=== PATIENT | female | born 1950 | race Caucasian/White ===

== ENCOUNTER 2017-10-17 13:10 | Emergency (ER) | payer MEDICARE ==
[2017-10-17] MEDS ORDERED: Acetaminophen 500 MG TAB ONE (13:58)
[2017-10-17] MEDS ORDERED: Albuterol Sulfate 2.5 mg/0.5 ml Neb ONE (15:01)
--- NOTE | 2017-10-17 15:34 | RAD ---
TWO VIEW CHEST: INDICATION: Cough and fever. FINDINGS: There is prominence of the cardiac silhouette. No lobar consolidation, effusion, or discrete pneumot horax. Osseous structures are intact. IMPRESSION: No focal consolidation. POS: [facility]
== END 2017-10-17 15:41 | disposition home or self-care (01) ==
LOC: SCSER 13:10
DX: J11.1 Influenza due to unidentified influenza virus with other respiratory manifestations (principal); E78.5 Hyperlipidemia, unspecified; I10 Essential (primary) hypertension
CPT/HCPCS: 71046; 94640; J7611

== ENCOUNTER 2018-01-07 14:51 | Outpatient (CLI) | payer MEDICARE ==
--- NOTE | 2018-01-07 17:12 | MMO ---
SCREENING MAMMOGRAPHY 01/07/18 COMPARISON: 10/03/15 HISTORY: Screening. FINDINGS: The patient's mammogram is interpreted with the assistance of computer aided detection. There is no dominant mass, architectural distortion. No concerning microcalcification. Scattered fibr oglandular densities are present. Benign appearing microcalcifications are noted bilaterally. No dominant mass or architectural distort ion. No concerning microcalcifications are noted. IMPRESSION: BI-RADS 2: Benign Finding(s) Routine annual screening mammography (for women over age 40). POS: [facility]
[2018-01-07 18:35] LABS: Hep C IgG Ab Non-Reactive (NonReactive); Hep C Index 0.12 S/CO (0-0.79)
== END 2018-01-07 14:52 | disposition home or self-care (01) ==
LOC: SCSMAMMO 14:51
PROVIDERS: ATTEND Family Medicine
DX: Z12.31 Encounter for screening mammogram for malignant neoplasm of breast (principal); Z00.00 Encounter for general adult medical examination without abnormal findings; Z11.59 Encounter for screening for other viral diseases
CPT/HCPCS: 36415; 77067; 86803

== ENCOUNTER 2018-08-24 01:57 | Emergency (ER) | payer MEDICARE ==
[2018-08-24] MEDS ORDERED: Amoxicillin/Potassium Clav 875 MG TAB ONE (02:38)
== END 2018-08-24 03:00 | disposition home or self-care (01) ==
LOC: SCSER 01:57
DX: J01.90 Acute sinusitis, unspecified (principal); I10 Essential (primary) hypertension; E78.5 Hyperlipidemia, unspecified; Z79.899 Other long term (current) drug therapy
CPT/HCPCS: 99283

== ENCOUNTER 2018-10-04 18:00 | Emergency (ER) | payer MEDICARE ==
--- NOTE | 2018-10-04 18:56 | RAD ---
THREE VIEWS RIGHT SMALL FINGER: Comparison: None. History: Injured small finger playing volleyball. FINDINGS: Three views of the right small finger shows a Sunita fracture of the distal phalanx at the DIP joint . A Sunita deformity at the finger is seen. IMPRESSION: Sunita fracture of the distal phalanx of the small finger. POS: [facility]
== END 2018-10-04 18:41 | disposition home or self-care (01) ==
LOC: SCSER 18:00
DX: S62.636A Displaced fracture of distal phalanx of right little finger, initial encounter for closed fracture (principal); I10 Essential (primary) hypertension; E78.5 Hyperlipidemia, unspecified; Z79.899 Other long term (current) drug therapy; W21.06XA Struck by volleyball, initial encounter

== ENCOUNTER 2018-10-20 13:49 | Day surgery (SDC) | payer MEDICARE ==
[2018-10-19 13:09] VITALS: BMI 23.9
[2018-10-20] MEDS ORDERED: Ketorolac Tromethamine 30 MG/ML VIAL ONE (15:32)
[2018-10-20] MEDS ORDERED: ePHEDrine/0.9% NaCl/PF SYRINGE 50 mg/10 ml ONE (15:32)
[2018-10-20] MEDS ORDERED: Lidocaine 1% PF 5 ML VIAL ONE (15:32)
[2018-10-20] MEDS ORDERED: PROPOFOL 200 MG/20 ML VIAL ONE (15:32)
[2018-10-20] MEDS ORDERED: Ondansetron PF 4 MG/2 ML Vial ONE (15:32)
[2018-10-20] MEDS ORDERED: Dexamethasone 20 MG/5 ML VIAL ONE (15:32)
[2018-10-20] MEDS ORDERED: PHENYLEPHRINE-NS 100 MCG/ML 10 ML SYRINGE ONE (15:32)
[2018-10-20 15:43] LABS: #Basophils 0.1 thou/uL (0.0-0.2); #Eosinphils 0.2 thou/uL (0.0-0.7); #Lymphocytes 1.1 thou/uL (1.20-3.40); #Monocytes 0.3 thou/uL (0.11-0.59); #Neutrophils 3.6 thou/uL (1.40-6.50); %Basophils 0.9 % (0.0-1.0); %Eosinophils 3.3 % (0.0-10.0); %Lymphocytes 20.6 % (21.0-51.0); %Monocytes 6.2 % (0.0-10.0); %Neutrophils 68.8 % (42.0-75.0); Hemoglobin 13.6 g/dL (12.0-16.0); Mean Corpuscular HGB CONC 33.9 g/dL (32.0-36.0); Mean Corpuscular Hemoglobin 29.2 pg (27.0-31.0); Mean Corpuscular Volume 86.1 fL (78.0-98.0); Mean Platelet Volume 7.5 fL (7.4-10.4); Platelet Count 211 thou/uL (130-400); RBC Distribution Width 11.8 % (11.5-14.5); Red Blood Cell (RBC) Count 4.65 mill/uL (4.20-5.40); White Blood Cell (WBC) Count 5.3 thou/uL (4.8-10.8)
[2018-10-20 15:56] LABS: Anion Gap 15 mmol/L (10-20); BUN (Urea Nitrogen) 12 mg/dL (9.8-20.1); Calc. Creatinine Clearance 72 mL/min (70-130); Calcium 9.9 mg/dL (7.8-10.44); Carbon Dioxide 19 mmol/L (23-31); Chloride 108 mmol/L (98-107); Estimated GFR-MDRD 80; Glucose 80 mg/dL (80-115); Potassium 3.6 mmol/L (3.5-5.1); Sodium 138 mmol/L (136-145)
--- NOTE | 2018-10-20 16:05 | RAD ---
TWO VIEWS CHEST: Comparison: 10-17-17 History: Pre-operative radiograph prior to finger surgery for mallet fracture of the finger. FINDINGS: Two views of the chest show normal sized cardiomediastinal silhouette. There is no evidence of consol idation, mass, or pleural effusion. The bones are unremarkable. IMPRESSION: No evidence of acute cardiopulmonary disease. POS: [facility]
[2018-10-20 16:07] LABS: Bilirubin Negative (Negative); Blood, Urine Negative (Negative); Clarity TURBID (Clear); Glucose, Urine (Dipstick) Negative (Negative); Leukocyte Negative (Negative); Nitrite Negative (Negative); Protein, Urine (Dipstick) Negative (Neg-Trace); Specific Gravity, Urine 1.015 (1.002-1.036); Urobilinogen 0.2 mg/dL (0.2-1.0); pH, Urine 7.5 (5.0-9.0)
[2018-10-20 16:09] LABS: Bacteria/HPF None Seen HPF (None Seen); Hyaline Casts/LPF 0-3 HYALINE CAST LPF (0-3 Hyaline); Pathc Cast-AUWi Flag 0.14 (0-2.49); RBC/HPF 0-3 HPF (0-3); Squamous Epithelial None Seen HPF (0-3); WBC/HPF 0-3 HPF (0-3)
[2018-10-20] MEDS ORDERED: Bacitracin Zinc Ointment 30 gm TUBE ONE (18:31)
[2018-10-20] MEDS ORDERED: Clindamycin/D5W 900 mg/50 ml Premix Bag ONE (18:46)
[2018-10-20] MEDS ORDERED: Midazolam HCl 2 mg/2 ml Vial ONE (19:01)
--- NOTE | 2018-10-20 23:46 | RAD ---
TWO VIEWS RIGHT FINGER 10/20/18 PROVIDED CLINICAL HISTORY: Fracture FINDINGS: Spot fluoroscopic images demonstrate percutaneous pinning of the DIP of one of the digits. IMPRESSION: As above. POS: [facility]
--- NOTE | 2018-10-21 07:29 | EKG ---
Test Reason : PREOP Blood Pressure : / mmHG Vent. Rate : 067 BPM Atrial Rate : 067 BPM P-R Int : 180 ms QRS Dur : 100 ms QT Int : 424 ms P-R-T Axes : 066 063 080 degrees QTc Int : 448 ms Normal sinus rhythm Possible Inferior infarct (cited on or before 28-NOV-2013) Abnormal ECG When compared with ECG of 06-APR-2014 08:52, No significant change was found Confirmed by DR. Cale DURBIN ([id number]) on 10/21/2018 7:29:42 AM Referred By: TYRESE Confirmed By:DR. Cale DURBIN
--- NOTE | 2018-10-21 10:37 | OP ---
DATE OF PROCEDURE: 10/20/2018 PREOPERATIVE DIAGNOSIS: Right small finger extensor tendon laceration with mallet fracture displaced 100%, not touching. POSTOPERATIVE DIAGNOSES: Right small finger extensor tendon laceration with mallet fracture displaced 100% not touching, with a finding of 6 mm wide by 2 mm thick avulsion fracture with 6 mm extensor tendon laceration, terminal tendon. PROCEDURE PERFORMED: 1. C-arm supervision to open reduction of distal phalanx mallet fracture. 2. Pinning of distal interphalangeal joint. 3. Extensor tendon repair. TOURNIQUET TIME: Forty-four minutes. BLOOD LOSS: Less than 10 mL. INDICATIONS FOR PROCEDURE: Patient with mallet fracture 100% displaced, small, could not reduce splint in office. Thus, intervention was indicated. DESCRIPTION OF PROCEDURE: After successful general LMA technique by MAC anesthesia and was prepped and draped. Time-out was done appropriately. We gave a 10 mL of 0.5% Marcaine metacarpophalangeal joint block level right small finger with Marcaine 0.5%, no epi. Waited for 3 minutes, and then exsanguinated the limb. Inflated tourniquet to 250 mmHg pressure. C-arm brought to the field again and made several attempts to achieve closed reduction, but would not even oppose despite position of the joint. For this reason, we made a H-shaped incision, carried out through skin and subcutaneous tissue. Brought the exposing the terminal tendon and the joint, we then used C-arm to determine where the fragment was located and then made an incision in the tendon V-shaped 1.5 mm distal to this so that the fragment would have a chance to have tendon on it. In the middle of this, we saw a five 6 mm radial-sided laceration and we entered this radially and distally. We made a V-shape to preserve tendon on the bone. We then curetted the tiny fragment, made slight depressions, noticed that the fragment was too small over the K-wire, so we pinned the joint with a 0.045 K-wire and mild hyperextension, only 5 degrees. We used a [place] suture heavy 3-0 Prolene to tendons and along the edges of the bone to help reduce it. Then, with the pin joint and the pin 1.5 cm into the bone of the middle phalanx, we then drilled two Diogo needles on either side of the fracture obliquely into the trough created, we have allowed to pull the tendon and bone into the defect. Once this was done, we then confirmed reduction, tied the heavy 3-0 Prolene over a button with a Adaptic between the skin and the button and we had excellent apposition and no motion grossly of the button or the tendon/bone repair. Radiographs showed the bone was nearly anatomical with complete apposition into the distal phalanx distal to the fracture. We deflated the tourniquet, cut the wire below the skin, closed the 6 mm defect with a 5-0 [id number] Prolene, obtained hemostasis, closed the skin with interrupted 4-0 nylon simple pattern and placed a bulky dressing with a splint MP joint, 80 degrees, PIP extended out to the level of the nail bed. The patient left the operating with pink digit. No evidence of anesthetic operative complication. Job ID: [id number]
== END 2018-10-20 22:10 | disposition home or self-care (01) ==
LOC: SDC 13:49
PROVIDERS: ATTEND Orthopaedic Surgery Hand Surgery
PROC: 0LQ70ZZ Repair Right Hand Tendon, Open Approach (ICD-10-PCS; principal; 2018-10-20)
PROC: 0PST34Z Reposition Right Finger Phalanx with Internal Fixation Device, Percutaneous Approach (ICD-10-PCS; 2018-10-20)
DX: S66.326A Laceration of extensor muscle, fascia and tendon of right little finger at wrist and hand level, initial encounter (principal); S62.636A Displaced fracture of distal phalanx of right little finger, initial encounter for closed fracture; M20.011 Mallet finger of right finger(s); I10 Essential (primary) hypertension; J30.2 Other seasonal allergic rhinitis; Z79.82 Long term (current) use of aspirin; Z79.899 Other long term (current) drug therapy; Z88.0 Allergy status to penicillin; Y93.68 Activity, volleyball (beach) (court)
CPT/HCPCS: 71046; 76000; 80048; 81001; 85025; 93005; 93010; J1100; J1885; J2001; J2250; J2405; J2704; J3490

== ENCOUNTER 2019-03-18 08:46 | Outpatient (CLI) | payer MEDICARE ==
--- NOTE | 2019-03-18 10:47 | MMO ---
Bilateral MAMMO Bilat Screen [facility]. CLINICAL HISTORY: Patient is 69 years old and is seen for screening. The patient has no family history of breast cancer. The patient has no personal history of cancer. VIEWS: The views performed were: bilateral craniocaudal and bilateral mediolateral oblique. FILMS COMPARED: The present examination has been compared to prior imaging studies performed at [place] on 10/03/2015 and 01/07/2018. This study has been interpreted with the assistance of computer-aided detection. MAMMOGRAM FINDINGS: There are scattered fibroglandular densities. There are no suspicious masses, suspicious calcifications, or new areas of architectural distortion. IMPRESSION: THERE IS NO MAMMOGRAPHIC EVIDENCE OF MALIGNANCY. A ROUTINE FOLLOW-UP MAMMOGRAM IN 1 YEAR IS RECOMMENDED. ACR BI-RADS Category 1 - Negative MAMMOGRAPHY NOTE: 1. A negative mammogram report should not delay a biopsy if a dominant of clinically suspicious mass is present. 2. Approximately 10% to 15% of breast cancers are not detected by mammography. 3. Adenosis and dense breasts may obscure an underlying neoplasm.
== END 2019-03-18 08:47 | disposition home or self-care (01) ==
LOC: SCSMAMMO 08:46
PROVIDERS: ATTEND Family Medicine
DX: Z12.31 Encounter for screening mammogram for malignant neoplasm of breast (principal)
CPT/HCPCS: 77067

== ENCOUNTER 2025-07-25 08:36 | Outpatient (CLI) | payer MEDICARE | END 2025-07-25 08:37 | disposition home or self-care (01) | LOC: BICMAMMO 08:36 | PROVIDERS: ATTEND Family Medicine | DX: Z78.0 Asymptomatic menopausal state (principal); M85.89 Other specified disorders of bone density and structure, multiple sites | CPT/HCPCS: 77080 ==